=== PATIENT | male | born 1980 | race Two or more races ===

== ENCOUNTER 2018-12-16 21:15 | Emergency (ER) | payer SELFPAY ==
[~2018-12-16] VITALS: Ht 165.1 cm; Wt 81.0 kg
[2018-12-17 00:40] LABS: CHLORIDE 107 mEq/L (98-107)
[2018-12-17 00:41] LABS: BASOPHILS % 0.4 % (0.0-2.0); HEMATOCRIT. 45.9 % (42.0-52.0); HEMOGLOBIN. 15.6 g/dL (14.0-18.0); LYMPHOCYTES % 47.5 % (20.0-50.0); MEAN CORPUSCULAR HEMOGLOBIN 30.7 pg (28.0-32.0); MEAN PLATELET VOLUME 9.2 fl (7.4-10.4); MONOCYTES % 7.3 % (2.0-8.0); NEUTROPHILS % 42.8 % (40.0-76.0); PLATELET 308 x1000/uL (130-400); RED CELL DISTRIBUTION WIDTH 13.2 % (11.6-14.6)
[2018-12-17 04:20] VITALS: BP 101/69
== END 2018-12-17 04:54 | disposition home or self-care (01) ==
LOC: ER 21:15
DX: B34.9 Viral infection, unspecified (principal); F17.200 Nicotine dependence, unspecified, uncomplicated
CPT/HCPCS: 36415; 71045; 84484; 85379; 93005; 99284